=== PATIENT | female | born 2000 | race Caucasian/White ===

== ENCOUNTER 2021-04-24 12:54 | Emergency (ER) | payer BC ==
[~2021-04-24] VITALS: Ht 165.1 cm; Wt 59.0 kg
[~2021-04-24 12:54] MED LIST: NOHOMEMEDICATIONS
[2021-04-24] MEDS ORDERED: AMOXICILLIN 50500 MG PO (14:36)
[2021-04-24] MEDS ORDERED: AFRIN15 ML NASAL (14:36)
[2021-04-24] MEDS ORDERED: MEDROLDOSEPACK PO (14:36)
[2021-04-24 14:44] VITALS: BP 130/93
== END 2021-04-24 14:45 | disposition home or self-care (01) ==
LOC: M.ERS 12:54
DX: J01.90 Acute sinusitis, unspecified (principal)